=== PATIENT | male | born 1990 | race Caucasian/White ===

== ENCOUNTER 2020-09-11 08:02 | Day surgery (SDC) | payer MEDICAID ==
[~2020-09-11 08:02] MED LIST: Lactated Ringers 1,000 ML IV SCH; Lidocaine 1%/Sod Bicarbonate in NS 8.4% 1 ML Syringe IDERM PRN; Sodium Chloride 0.9% 10 ML Syringe FLUSH PRN
[2020-09-11] MEDS ORDERED: Lidocaine 1% 4 ML ONE (09:05)
[2020-09-11] MEDS ORDERED: fentaNYL 100 MCG/2 ML SDV ONE (09:05)
[2020-09-11] MEDS ORDERED: Propofol 200 MG/20 ML SDV ONE ×2 (09:05→09:54)
[2020-09-11] MEDS ORDERED: Albuterol 0.083% 2.5 MG/3 ML Neb Soln NEB SCH (09:05)
[2020-09-11] MEDS ORDERED: Midazolam 1 MG/ML 2 ML SDV ONE (09:05)
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
--- NOTE | 2020-09-11 10:13 | PCM.PRNOTE ---
- Free Text/Narrative Note: Date: 09/11/2020 Procedure: diagnostic esophagogastroduodenoscopy Indication: chronic epigastric pain, weight loss Endoscopist: Esteban Shfefield MD Findings: gross appearance of mild inflammatory changes of the duodenum and stomach. No gastric ulcer. No hiatal hernia. Z-line, esophagus appeared normal. Detailed Report: The patient was taken to the endoscopy suite and placed in left lateral decubitus position. Time out was performed and monitored sedation initiated. A bite block was placed. The endoscope was inserted orally and advanced to the second portion of the duodenum with ease. The duodenal mucosa appeared slightly erythematous, and in the distal duodenum there was a subcentimeter well demarcated whitish plaque that was biopsied with forceps. A sample from the duodenal bulb was also obtained. There appeared to be mild gastritis; biopsies were taken from the antrum. There were no ulcers. No hiatal hernia was noted on retroflexion. The Z line appeared normal. Biopsies of the cardia and distal esophageal mucosa were obtained. No other esophageal pathology was noted as the scope was withdrawn. Air was suctioned from the stomach prior to removal of the scope. The patient tolerated the procedure well.
--- NOTE | 2020-09-11 10:21 | PCM48HPAN ---
Post Anesthesia Note - EVALUATION WITHIN 48HRS OF ANESTHETIC Vital Signs in Normal Range: Yes Patient Participated in Evaluation: Yes Respiratory Function Stable: Yes Airway Patent: Yes Cardiovascular Function Stable: Yes Hydration Status Stable: Yes Pain Control Satisfactory: Yes Nausea and Vomiting Control Satisfactory: Yes Mental Status Recovered: Yes Vital Signs: Last Vital Signs Temp 36.4 C 09/11/20 08:15 Pulse 68 09/11/20 09:09 Resp 16 09/11/20 08:15 BP 130/74 09/11/20 08:15 Pulse Ox 97 09/11/20 08:15 - COMMENTS/OBSERVATIONS Free Text/Narrative:: no anesthesia complications noted
[2020-09-11] MEDS ORDERED: FLU VACC QS2020-21(6MOS UP)/PF 60 MCG/0.5 ML SYRINGE IM ONE (11:00)
== END 2020-09-11 11:07 | disposition home or self-care (01) ==
LOC: JD.SDS 08:02
PROVIDERS: ATTEND Surgery
DX: K29.50 Unspecified chronic gastritis without bleeding (principal); K21.00 Gastro-esophageal reflux disease with esophagitis, without bleeding; Z88.8 Allergy status to other drugs, medicaments and biological substances; Z79.899 Other long term (current) drug therapy; F17.210 Nicotine dependence, cigarettes, uncomplicated; Z91.041 Radiographic dye allergy status
CPT/HCPCS: 43239; 94640; J2001; J2250; J2704; J3010; J7120; 00731

== ENCOUNTER 2021-03-01 17:03 | Emergency (ER) | payer MEDICAID ==
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
[2021-03-01] MEDS ORDERED: Penicillin V Potassium 500 MG Tab PO STA (20:12)
== END 2021-03-01 21:15 | disposition home or self-care (01) ==
LOC: JD.ED 17:03
DX: J02.9 Acute pharyngitis, unspecified (principal); I25.2 Old myocardial infarction; J45.909 Unspecified asthma, uncomplicated; Z72.0 Tobacco use; Z91.018 Allergy to other foods; Z91.02 Food additives allergy status; Z88.8 Allergy status to other drugs, medicaments and biological substances; Z20.822 Contact with and (suspected) exposure to COVID-19
CPT/HCPCS: 87635; 87651; 99283; A9270; U0002

== ENCOUNTER 2021-07-07 14:17 | Emergency (ER) | payer MEDICAID ==
[2021-07-07] MEDS ORDERED: Sodium Chloride 0.9% 10 ML Syringe FLUSH PRN (14:57)
[2021-07-07] MEDS ORDERED: Ketorolac 30 MG/ML SDV IVPUSH ONE (14:58)
[2021-07-07] MEDS ORDERED: diphenhydrAMINE 50 MG/ML SDV IVPUSH ONE (14:58)
[2021-07-07] MEDS ORDERED: Diphtheria,Pertussis(Acell),Tetanus Vaccine 0.5 ML Syringe IM ONE (14:58)
[2021-07-07] MEDS ORDERED: Metoclopramide 10 MG/2 ML SDV IVPUSH ONE (14:58)
--- NOTE | 2021-07-07 15:29 | CT ---
Head CT Technique: Multiple axial sections of the brain were obtained. Intravenous contrast was not utilized. Reconstructed coronal and sagittal images were obtained. Comparison: No prior intracranial imaging is available. Findings: Ventricles along with basal cisterns and sulci over the convexities are within normal limits for the patient's age. No abnormal parenchymal densities are seen. No evidence of intracranial hemorrhage is seen. No midline shift or mass-effect is seen. Bone window settings were reviewed. No acute calvarial abnormality is appreciated. Visualized mastoid and paranasal sinuses show nothing acute. Impression: 1. Nothing acute is appreciated on noncontrast head CT study. Diagnostic code #1
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
== END 2021-07-07 16:16 | disposition home or self-care (01) ==
LOC: JD.ED 14:17
DX: S01.81XA Laceration without foreign body of other part of head, initial encounter (principal); S91.331A Puncture wound without foreign body, right foot, initial encounter; G43.809 Other migraine, not intractable, without status migrainosus; I25.2 Old myocardial infarction; J45.909 Unspecified asthma, uncomplicated; Z23 Encounter for immunization; Z72.0 Tobacco use; Z91.018 Allergy to other foods; Z88.8 Allergy status to other drugs, medicaments and biological substances; W45.0XXA Nail entering through skin, initial encounter
CPT/HCPCS: 70450; 70450-26; 90471; 90715; 96374; 96375; 99283-25; 99284; J1200; J1885; J2765

== ENCOUNTER 2021-07-30 | Emergency (ER) | payer MEDICAID ==
[2021-07-30] MEDS ORDERED: Metoclopramide 10 MG/2 ML SDV IM ONE (00:32)
[2021-07-30] MEDS ORDERED: diphenhydrAMINE 50 MG/ML SDV IM ONE (00:33)
[2021-07-30] MEDS ORDERED: Ketorolac 60 MG/2 ML SDV IM ONE (00:33)
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
== END 2021-07-30 01:01 | disposition home or self-care (01) ==
LOC: JD.ED
DX: G43.909 Migraine, unspecified, not intractable, without status migrainosus (principal); I25.2 Old myocardial infarction; Z88.5 Allergy status to narcotic agent; Z91.048 Other nonmedicinal substance allergy status
CPT/HCPCS: 96372; 99283; J1200; J1885; J2765

== ENCOUNTER 2021-09-05 16:13 | Emergency (ER) | payer MEDICAID ==
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
[2021-09-05 17:55] LABS: ACETAMINOPHEN 0 ug/mL (10-30)
== END 2021-09-06 00:30 ==
LOC: JD.ED 16:13
DX: F20.9 Schizophrenia, unspecified (principal); I25.2 Old myocardial infarction; Z72.0 Tobacco use; Z91.048 Other nonmedicinal substance allergy status; Z91.018 Allergy to other foods; Z88.5 Allergy status to narcotic agent; Z20.822 Contact with and (suspected) exposure to COVID-19
CPT/HCPCS: 36415; 80053; 80143; 80179; 80306; 80307; 81003; 83735; 84443; 85025; 93005; 99285-25; U0002

== ENCOUNTER 2022-04-01 03:39 | Emergency (ER) | payer MEDICAID ==
[2022-04-01 05:16] LABS: ACETAMINOPHEN 0 ug/mL (10-30)
== END 2022-04-01 11:30 | disposition other institution (70) ==
LOC: JD.ED 03:39
DX: F20.9 Schizophrenia, unspecified (principal); Z28.310 Unvaccinated for COVID-19; Z88.5 Allergy status to narcotic agent; Z91.041 Radiographic dye allergy status; Z72.0 Tobacco use; Z20.822 Contact with and (suspected) exposure to COVID-19
CPT/HCPCS: 36415; 80053; 80143; 80179; 80306; 80307; 84443; 85025; 93005; 99285-25; U0002

== ENCOUNTER 2022-04-22 07:07 | Emergency (ER) | payer SELFPAY ==
[2022-04-22 08:58] LABS: ACETAMINOPHEN 0 ug/mL (10-30)
== END 2022-04-22 12:00 | disposition home or self-care (01) ==
LOC: JD.ED 07:07
DX: F20.9 Schizophrenia, unspecified (principal); I25.2 Old myocardial infarction; Z91.018 Allergy to other foods; Z88.8 Allergy status to other drugs, medicaments and biological substances; Z91.041 Radiographic dye allergy status; Z20.822 Contact with and (suspected) exposure to COVID-19
CPT/HCPCS: 36415; 80053; 80143; 80179; 80306; 80307; 81003; 83690; 84443; 85025; 93005; 99285-25; U0002

== ENCOUNTER 2022-05-24 10:21 | Emergency (ER) | payer MEDICAID | END 2022-05-24 12:14 | disposition home or self-care (01) | LOC: JD.ED 10:21 | DX: U07.1 COVID-19 (principal); I25.2 Old myocardial infarction; Z91.018 Allergy to other foods; Z88.5 Allergy status to narcotic agent; Z91.041 Radiographic dye allergy status | CPT/HCPCS: 99282; 99283; U0002 ==

== ENCOUNTER 2022-10-01 12:56 | Emergency (ER) | payer MEDICAID ==
[2022-10-01] MEDS ORDERED: LORazepam 1 MG Tab PO ONE (15:37)
[2022-10-01] MEDS ORDERED: Ibuprofen 800 MG Tab PO ONE (15:48)
== END 2022-10-01 18:40 | disposition home or self-care (01) ==
LOC: SUPCPDRO 12:56 → JD.ED 12:56
DX: S63.641A Sprain of metacarpophalangeal joint of right thumb, initial encounter (principal); S00.83XA Contusion of other part of head, initial encounter; S60.221A Contusion of right hand, initial encounter; F31.62 Bipolar disorder, current episode mixed, moderate; F17.210 Nicotine dependence, cigarettes, uncomplicated; Z91.018 Allergy to other foods; Z88.8 Allergy status to other drugs, medicaments and biological substances; Z91.041 Radiographic dye allergy status; W22.8XXA Striking against or struck by other objects, initial encounter
CPT/HCPCS: 70450; 73130; 80306; 99284; A9270

== ENCOUNTER 2022-11-01 13:05 | Emergency (ER) | payer MEDICAID ==
[2022-11-01 16:47] LABS: CORONAVIRUS COVID-19 NAA NEGATIVE (NEGATIVE)
[2022-11-02] MEDS ORDERED: LORazepam 1 MG Tab PO ONE ×2 (10:11→13:42)
[2022-11-02] MEDS ORDERED: lamoTRIgine 100 MG Tab PO ONE (13:18)
== END 2022-11-02 14:20 | disposition still patient (30) ==
LOC: JD.ED 13:05
DX: T43.592A Poisoning by other antipsychotics and neuroleptics, intentional self-harm, initial encounter (principal); Z88.8 Allergy status to other drugs, medicaments and biological substances; Z91.041 Radiographic dye allergy status; Z79.899 Other long term (current) drug therapy; Z20.822 Contact with and (suspected) exposure to COVID-19
CPT/HCPCS: 0241U; 36415; 80053; 80143; 80179; 80306; 80307; 84443; 85025; 93005; 99285; A9270

== ENCOUNTER 2023-02-23 09:44 | Emergency (ER) | payer MEDICAID ==
[2023-02-23] MEDS ORDERED: Ketorolac 60 MG/2 ML SDV IM ONE (10:22)
== END 2023-02-23 10:39 | disposition home or self-care (01) ==
LOC: JD.ED 09:44
DX: K08.89 Other specified disorders of teeth and supporting structures (principal); I25.2 Old myocardial infarction; J45.909 Unspecified asthma, uncomplicated; K21.9 Gastro-esophageal reflux disease without esophagitis; Z72.0 Tobacco use; Z79.899 Other long term (current) drug therapy; Z91.018 Allergy to other foods; Z88.8 Allergy status to other drugs, medicaments and biological substances; Z91.041 Radiographic dye allergy status
CPT/HCPCS: 96372; 99282; J1885

== ENCOUNTER 2023-12-14 09:54 | Emergency (ER) | payer MEDICARE, MEDICAID ==
[2023-12-14] MEDS ORDERED: Sodium Chloride 0.9% 10 ML Syringe FLUSH PRN (10:21)
[2023-12-14] MEDS ORDERED: Ondansetron 4 MG/2 ML SDV IVPUSH ONE (10:21)
[2023-12-14] MEDS ORDERED: Sodium Chloride 0.9% 1,000 ML IV STA (10:21)
[2023-12-14] MEDS ORDERED: Ketorolac 30 MG/ML SDV IVPUSH ONE (10:23)
[2023-12-14] MEDS ORDERED: Iopamidol 612 MG/ML 100 ML Bottle IVPUSH ONE (10:27)
[2023-12-14 10:30] LABS: BASOPHILS PERCENT AUTO 0.2 % (0.0-1.0); EOSINOPHILS ABSOLUTE AUTO 0.1 K/mm3 (0.0-0.4); EOSINOPHILS PERCENT AUTO 0.6 % (0.0-6.0); HEMATOCRIT 47.2 % (42.0-52.0); HEMOGLOBIN 15.8 gm/dl (14.0-18.0); IMMATURE GRAN ABSOLUTE AUTO 0.09 K/mm3 (0.00-0.05); IMMATURE GRAN PERCENT AUTO 0.7 % (0.0-0.4); LYMPHOCYTES ABSOLUTE AUTO 1.4 K/mm3 (1.0-4.8); LYMPHOCYTES PERCENT AUTO 10.3 % (24.0-44.0); MEAN CORPUSCULAR HEMOGLOBIN 30.9 pg (28.0-32.0); MEAN CORPUSCULAR HGB CONC 33.5 g/dl (32.0-36.0); MEAN CORPUSCULAR VOLUME 92.4 fl (83.0-99.0); MEAN PLATELET VOLUME 8.6 fl (9.4-12.4); MONOCYTES ABSOLUTE AUTO 0.7 K/mm3 (0.0-0.8); MONOCYTES PERCENT AUTO 5.1 % (0.0-8.0); NEUTROPHILS ABSOLUTE AUTO 11.5 K/mm3 (1.8-7.7); NEUTROPHILS PERCENT AUTO 83.1 % (41.0-71.0); PLATELET COUNT,PLT 215 K/mm3 (150-400); RED BLOOD CELL COUNT 5.11 M/mm3 (4.52-5.90); WHITE BLOOD CELL COUNT,WBC 13.81 K/mm3 (3.9-11.3)
[2023-12-14] MEDS: Sodium Chloride 0.9% 10 ML Syringe FLUSH PRN ×2 (10:45→11:00)
[2023-12-14 11:11] LABS: A/G RATIO 1.1 (1-2); ALBUMIN 4.1 g/dl (3.4-5.0); ANION GAP 10.6 (5-15); BILIRUBIN TOTAL 0.4 mg/dL (0.2-1.0); BUN/CREATININE RATIO 10.9 (14-18); CALCIUM 9.2 mg/dL (8.5-10.1); CREATININE 1.1 mg/dL (0.7-1.3); EST CRCL DRUG DOSING (CG) 106.94 mL/min; POTASSIUM,K 3.6 mEq/L (3.5-5.1); PROTEIN TOTAL,TP 7.7 g/dl (6.4-8.2)
[2023-12-14 12:07] LABS: APPEARANCE,URINE CLEAR (Clear); BILIRUBIN,URINE NEGATIVE (Negative); COLOR,URINE YELLOW (Yellow); GLUCOSE,URINE NEGATIVE (Negative); KETONES,URINE NEGATIVE (Negative); LEUKOCYTE ESTERASE,URINE NEGATIVE (Negative); NITRITE,URINE NEGATIVE (Negative); OCCULT BLOOD,URINE NEGATIVE (Negative); PH,URINE 6.5 (5.0-8.0); PROTEIN,URINE NEGATIVE (Negative); UROBILINOGEN,URINE 0.2 (0.2-1.0)
[2023-12-14 12:59] LABS: BACTERIA,URINE NOT SEEN /hpf (FEW); EPITHELIAL CELLS,URINE 0-5 /hpf (0-5); MUCUS,URINE NOT SEEN /hpf (FEW); RBC,URINE 0-5 /hpf (0-5); WBC,URINE 0-5 /hpf (0-5)
== END 2023-12-14 14:05 | disposition home or self-care (01) ==
LOC: JD.ED 09:54
DX: K52.9 Noninfective gastroenteritis and colitis, unspecified (principal); I25.2 Old myocardial infarction; J45.909 Unspecified asthma, uncomplicated; K21.9 Gastro-esophageal reflux disease without esophagitis; Z91.018 Allergy to other foods; Z91.041 Radiographic dye allergy status; Z88.8 Allergy status to other drugs, medicaments and biological substances; Z79.2 Long term (current) use of antibiotics; Z79.899 Other long term (current) drug therapy
CPT/HCPCS: 36415; 74177; 80053; 81001; 83690; 85025; 96374; 96375; 99285; J1885; J2405; J3490; J7030; Q9967; 99284

== ENCOUNTER 2025-03-01 18:44 | Emergency (ER) | payer MEDICARE, MEDICAID ==
[2025-03-01 19:35] LABS: BASOPHILS PERCENT AUTO 0.3 % (0.0-1.0); EOSINOPHILS ABSOLUTE AUTO 0.2 K/mm3 (0.0-0.4); HEMATOCRIT 49.5 % (42.0-52.0); HEMOGLOBIN 16.1 gm/dl (14.0-18.0); IMMATURE GRAN ABSOLUTE AUTO 0.04 K/mm3 (0.00-0.05); IMMATURE GRAN PERCENT AUTO 0.5 % (0.0-0.4); LYMPHOCYTES ABSOLUTE AUTO 1.4 K/mm3 (1.0-4.8); LYMPHOCYTES PERCENT AUTO 18.6 % (24.0-44.0); MEAN CORPUSCULAR HEMOGLOBIN 31.2 pg (28.0-32.0); MEAN CORPUSCULAR HGB CONC 32.5 g/dl (32.0-36.0); MEAN CORPUSCULAR VOLUME 95.9 fl (83.0-99.0); MEAN PLATELET VOLUME 8.6 fl (9.4-12.4); MONOCYTES ABSOLUTE AUTO 0.7 K/mm3 (0.0-0.8); NEUTROPHILS ABSOLUTE AUTO 5.2 K/mm3 (1.8-7.7); NEUTROPHILS PERCENT AUTO 69.6 % (41.0-71.0); PLATELET COUNT,PLT 282 K/mm3 (150-400); RED BLOOD CELL COUNT 5.16 M/mm3 (4.52-5.90); WHITE BLOOD CELL COUNT,WBC 7.43 K/mm3 (3.9-11.3)
[2025-03-01 20:09] LABS: A/G RATIO 1.1 (1-2); ALBUMIN 3.9 g/dl (3.4-5.0); ANION GAP 10.1 (5-15); BILIRUBIN TOTAL 0.8 mg/dL (0.2-1.0); BUN/CREATININE RATIO 17.3 (14-18); CALCIUM 9.1 mg/dL (8.5-10.1); CREATININE 1.1 mg/dL (0.7-1.3); EST CRCL DRUG DOSING (CG) 84.49 mL/min; MAGNESIUM 2.1 mg/dL (1.8-2.4); POTASSIUM,K 4.1 mEq/L (3.5-5.1); PROTEIN TOTAL,TP 7.4 g/dl (6.4-8.2); TSH 0.608 uIU/mL (0.358-3.74)
[2025-03-01 20:54] LABS: BARBITURATE SCREEN,URINE NEGATIVE (CUTOFF=200); BENZODIAZEPINES SCREEN,URINE NEGATIVE (CUTOFF=150); BUPRENORPHINE SCREEN,URINE NEGATIVE (CUTOFF=10); METHADONE SCREEN, URINE NEGATIVE (CUT0FF=200); METHAMPHETAMINES SCREEN, URINE PRESUMPTIVE POSITIVE (CUTOFF=500); OXYCODONE SCREEN,URINE NEGATIVE (CUT0FF=100); THC SCREEN,URINE 20 NG/ML PRESUMPTIVE POSITIVE (CUTOFF=50)
[2025-03-01 20:57] LABS: AMPHETAMINES SCREEN, URINE NEGATIVE (CUTOFF=500)
== END 2025-03-02 01:07 ==
LOC: JD.ED 18:44
DX: F20.9 Schizophrenia, unspecified (principal); F15.10 Other stimulant abuse, uncomplicated; J45.909 Unspecified asthma, uncomplicated; Z86.16 Personal history of COVID-19; Z88.8 Allergy status to other drugs, medicaments and biological substances; Z91.018 Allergy to other foods; Z79.899 Other long term (current) drug therapy
CPT/HCPCS: 36415; 80053; 80143; 80179; 80306; 80307; 82550; 83735; 84443; 85025; 87428-QW; 93005; 93010; 99285

== ENCOUNTER 2025-07-05 07:25 | Emergency (ER) | payer MEDICARE, MEDICAID ==
[2025-07-05] MEDS: Sodium Chloride 0.9% 10 ML Syringe FLUSH PRN (08:28)
[2025-07-05] MEDS: LORazepam 2 MG/ML SDV IVPUSH ONE ×2 (08:30→10:08)
[2025-07-05 08:48] LABS: BASOPHILS ABSOLUTE AUTO 0.1 K/mm3 (0.0-0.2); BASOPHILS PERCENT AUTO 0.4 % (0.0-1.0); EOSINOPHILS ABSOLUTE AUTO 0.1 K/mm3 (0.0-0.4); EOSINOPHILS PERCENT AUTO 0.8 % (0.0-6.0); IMMATURE GRAN ABSOLUTE AUTO 0.07 K/mm3 (0.00-0.05); IMMATURE GRAN PERCENT AUTO 0.6 % (0.0-0.4); LYMPHOCYTES ABSOLUTE AUTO 2.3 K/mm3 (1.0-4.8); LYMPHOCYTES PERCENT AUTO 18.4 % (24.0-44.0); MEAN PLATELET VOLUME 8.7 fl (9.4-12.4); MONOCYTES ABSOLUTE AUTO 1.1 K/mm3 (0.0-0.8); MONOCYTES PERCENT AUTO 8.6 % (0.0-8.0); NEUTROPHILS ABSOLUTE AUTO 8.9 K/mm3 (1.8-7.7); NEUTROPHILS PERCENT AUTO 71.2 % (41.0-71.0); NRBC ABSOLUTE 0.00 (0.00-0.02); NRBC PERCENT 0.0 % (0.0-0.2); PLATELET COUNT,PLT 280 K/mm3 (150-400); RED BLOOD CELL COUNT 4.81 M/mm3 (4.52-5.90); WHITE BLOOD CELL COUNT,WBC 12.47 K/mm3 (3.9-11.3)
[2025-07-05 09:11] LABS: A/G RATIO 1.2 (1-2); ALANINE AMINOTRANSFERASE,ALT 34.0 U/L (16-63); ASPARTATE AMNIOTRANSFERASE,AST 31.0 U/L (15-37); BILIRUBIN TOTAL 1.0 mg/dL (0.2-1.0); BLOOD UREA NITROGEN,BUN 20.0 mg/dL (7-18); CARBON DIOXIDE,CO2 26.0 mEq/L (21-32); CHLORIDE,CL 99.0 mEq/L (98-107); CREATININE 1.0 mg/dL (0.7-1.3); EST CRCL DRUG DOSING (CG) 105.44 mL/min; ESTIMATED GFR 100.0 mL/min (>60); GLUCOSE RANDOM 108.0 mg/dL (70-99); POTASSIUM,K 3.4 mEq/L (3.5-5.1); PROTEIN TOTAL,TP 8.0 g/dl (6.4-8.2); SODIUM,NA 139.0 mEq/L (136-145); TSH 1.263 uIU/mL (0.358-3.74)
[2025-07-05 09:12] LABS: ETHANOL BLOOD MEDICAL 0.0 gm% (0.00)
== END 2025-07-05 15:35 | disposition home or self-care (01) ==
LOC: JD.ED 07:25
DX: F15.10 Other stimulant abuse, uncomplicated (principal); F12.10 Cannabis abuse, uncomplicated; I25.2 Old myocardial infarction; K21.9 Gastro-esophageal reflux disease without esophagitis; Z91.018 Allergy to other foods; Z91.041 Radiographic dye allergy status; Z88.8 Allergy status to other drugs, medicaments and biological substances; Z79.899 Other long term (current) drug therapy; Z86.16 Personal history of COVID-19
CPT/HCPCS: 36415; 80053; 80143; 80179; 80307; 84443; 85025; 96361; 96374; 99285; A9270; J2060; J7030